=== PATIENT | male | born 1980 | race Caucasian/White ===

== ENCOUNTER 2017-01-15 21:48 | Emergency (ER) | payer BC ==
[~2017-01-15] VITALS: Ht 175.3 cm; Wt 114.0 kg
[2017-01-15 22:51] LABS: ADD MIUA? YES; BILIRUBIN NEGATIVE; BLOOD LARGE; COLOR YELLOW ((YELLOW)); GLUCOSE (STRIP) NEGATIVE; KETONES NEGATIVE; LEUKOCYTES SMALL; NITRITE NEGATIVE; PROTEIN (STRIP) NEGATIVE; SPECIFIC GRAVITY 1.018 (1.000-1.030); UROBILINOGEN 0.2 MG/DL (0.2-1.0)
[2017-01-15 23:01] LABS: HEMATOCRIT 48.3 % (38.0-50.0); MCH 29.1 PG (29.0-34.0); MCHC 33.7 G/DL (30.0-36.0); MCV 86.3 FL (86-99); MEAN PLAT.VOLUME 10.1 uM^3 (9.0-12.4); PLATELET COUNT 239 K/uL (156-360); RBC DIS.WIDTH-SD 41.1 % (39-53); WHITE BLOOD COUNT 7.8 K/uL (4.1-10.2)
[2017-01-15 23:10] LABS: BACTERIA NONE SEEN /HPF; EPITHELIAL CELLS NONE SEEN /HPF; MUCUS TRACE /LPF; RED BLOOD CELLS 0-5 /HPF (0-5); UCUL ADDED? NO; WHITE BLOOD CELLS 0-5 /HPF (0-5)
[2017-01-15 23:13] LABS: CHLORIDE 105 mEq/L (99-109); POTASSIUM 3.9 mEq/L (3.7-5.4); SODIUM 142 mEq/L (136-147)
[2017-01-15 23:15] LABS: GLUCOSE 95 mg/dL (70-99)
[2017-01-15 23:16] LABS: ANION GAP 13 MEQ/L (2-14)
[2017-01-15 23:18] LABS: GFR ESTIMATE (CALCULATED) > 59 mL/min/
[2017-01-15 23:19] LABS: UREA NITROGEN (BUN) 18 mg/dL (9-23)
[2017-01-16] MEDS ORDERED: CIPRO500 MG PO (03:27)
[2017-01-16] MEDS ORDERED: PERCOCET 5/31 TABLET PO (03:28)
[2017-01-16 03:43] VITALS: BP 155/91
== END 2017-01-16 03:44 | disposition home or self-care (01) ==
LOC: EME 21:48
DX: N39.0 Urinary tract infection, site not specified (principal); R31.9 Hematuria, unspecified; F17.200 Nicotine dependence, unspecified, uncomplicated
CPT/HCPCS: 74176; 80048; 81003; 85027; 99281; 99284